=== PATIENT | male | born 1980 | race African-American/Black ===

== ENCOUNTER 2016-12-05 01:31 | Emergency (ER) | payer SELFPAY ==
--- NOTE | 2016-12-05 01:46 | ERRECORD ---
[facility] EMERGENCY RECORD ADMIN (01:40 [facility]) MERGE: Ambulance SatDec 05, 2016 00:56. KNOWN ALLERGIES No Known Allergies (Unconfirmed) No Known Drug Allergies (Unconfirmed) UNKNOWN (Unconfirmed) CURRENT MEDICATIONS No recorded medications VITAL SIGNS (01:33 MBOS) VITAL SIGNS: BP: 164/94, Pulse: 69, Resp: 16, Temp: 98.6 (Oral), Pain: 0, O2 sat: 97 on Room Air, Time: 12/05/2016 01:33. PROBLEM LIST No recorded problems DIAGNOSIS (01:42 MBOS) FINAL: PRIMARY: none. PRESCRIPTION No recorded prescriptions DISPOSITION (01:42 MBOS) PATIENT: Disposition Type: Eloped, Disposition: Left Without Being Seen, Patient left the department. Collier: TARAS=HARIKA Jarquin, Gaye MBOS=HARIKA Mendez, Elizabeth &a-1R&a+25V*p+0X*[id number]*c202B*c15G*c2P*p-0X&a-25V&a+1R Name: Valentín Duffy : 1980 M36 MedRec: [id number] AcctNum: [id number] Prepared: SatDec 05, 2016 01:44 by Interface Page 1 of 1 pMD MTDD
--- NOTE | 2016-12-05 01:51 | PICIS ---
[facility] EMERGENCY RECORD ADMIN (01:40 [facility]) MERGE: Ambulance SatDec 05, 2016 00:56. TRIAGE (SatDec 05, 2016 01:36 MBOS) PATIENT: NAME: MinorValentín, AGE: 36, GENDER: male, : Sat 1980, TIME OF GREET: SatDec 05, 2016 01:32, PREFERRED LANGUAGE: [place]uran, RACE: Black or , ETHNICITY: Not or , ECODE BILLING MAP: [facility], SSN: [id number], Zip Code: [address], KG WEIGHT: [phone], PHONE: , , , PERSON ID: [id number], PCP: unknown. (SatDec 05, 2016 01:36 MBOS) TRIAGE NOTES: Brought by EMS, no complaint, refuses to be seen. Alert and oriented, smiling, ambulatory. (SatDec 05, 2016 01:36 MBOS) COMPLAINT: BROUGHT IN BY EMS. (SatDec 05, 2016 01:36 MBOS) ADMISSION: URGENCY: Left Before Triage, ADMISSION SOURCE: Prison/Longterm, TRANSPORT: AMBULANCE - [facility], BED: TRIAGE. (SatDec 05, 2016 01:36 MBOS) PROVIDERS: TRIAGE NURSE: Elizabeth Mendez RN. (SatDec 05, 2016 01:36 MBOS) VITAL SIGNS: BP 164/94, Pulse 69, Resp 16, Temp 98.6, (Oral), Pain 0, O2 Sat 97, on Room Air, Time 12/05/2016 01:33. (01:33 MBOS) PREVIOUS VISIT ALLERGIES: No Known Allergies. (SatDec 05, 2016 01:36 MBOS) KNOWN ALLERGIES No Known Allergies (Unconfirmed) No Known Drug Allergies (Unconfirmed) UNKNOWN (Unconfirmed) CURRENT MEDICATIONS No recorded medications VITAL SIGNS (01:33 MBOS) VITAL SIGNS: BP: 164/94, Pulse: 69, Resp: 16, Temp: 98.6 (Oral), Pain: 0, O2 sat: 97 on Room Air, Time: 12/05/2016 01:33. NURSING PROCEDURE: NURSE NOTES (01:36 MBOS) NURSES NOTES: Notes: Patient was uncooperative and agitated at ambulance bay, cursing, [place] [employer] called. Patient walked into room 2, states he has no complaints and does not want to be seen. Awake, alert, oriented x3, ambulatory. Refused to be seen, AMA signed, PD present and states patient has to have ride home or will go to longterm. Sister called per patient request and picked up patient. IV DC'd, patient left with his sister. EVENTS TRANSFER: Triage to Emergency Triage. (SatDec 05, 2016 01:36 MBOS) &a-1R&a+25V*p+0X*s8401I*c202B*c15G*c2P*p-0X&a-25V&a+1R Name: Valentín Duffy : 1980 M36 MedRec: [id number] AcctNum: [id number] Prepared: SatDec 05, 2016 01:49 by Interface Page 1 of 2 pMD [facility] EMERGENCY RECORD Removed from Emergency Triage. (01:42 MBOS) PROBLEM LIST No recorded problems DIAGNOSIS (01:42 MBOS) FINAL: PRIMARY: none. DISPOSITION (01:42 MBOS) PATIENT: Disposition Type: Eloped, Disposition: Left Without Being Seen, Patient left the department. PRESCRIPTION No recorded prescriptions IMAGING (01:43 MBOS) *DISCHARGE INSTRUCTIONS RECEIPT: Image captured from scanner. *SUPPLY CHARGE SHEET: Image captured from scanner. Collier: [facility]=HARIKA Jarquin, Gaye MBOS=HARIKA Mendez Marie &a-1R&a+25V*p+0X*[id number]*c202B*c15G*c2P*p-0X&a-25V&a+1R Name: Valentín Duffy : 1980 M36 MedRec: [id number] AcctNum: [id number] Prepared: SatDec 05, 2016 01:49 by Interface Page 2 of 2 pMD MTDD
== END 2016-12-05 01:35 | disposition left against medical advice (07) ==
LOC: NAV ERS 01:31
DX: Z53.21 Procedure and treatment not carried out due to patient leaving prior to being seen by health care provider (principal)

== ENCOUNTER 2017-03-18 12:14 | Emergency (ER) | payer SELFPAY ==
[2017-03-18 12:50] LABS: PTT 28.1 SEC (22.9-36.1); Prothrombin Time 12.9 SEC (12.0-14.7)
[2017-03-18 12:52] LABS: #Basophils 0.1 thou/uL (0.0-0.2); #Eosinphils 0.1 thou/uL (0.0-0.7); #Lymphocytes 2.1 thou/uL (1.20-3.40); #Monocytes 0.5 thou/uL (0.11-0.59); #Neutrophils 2.6 thou/uL (1.40-6.50); %Basophils 2.7 % (0.0-1.0); %Eosinophils 1.6 % (0.0-10.0); %Lymphocytes 37.8 % (21.0-51.0); %Monocytes 9.5 % (0.0-10.0); %Neutrophils 48.4 % (42.0-75.0); Hemoglobin 14.1 g/dL (14.0-18.0); Mean Corpuscular HGB CONC 34.1 g/dL (32.0-36.0); Mean Corpuscular Hemoglobin 30.1 pg (27.0-31.0); Mean Corpuscular Volume 88.2 fl (80.0-94.0); Mean Platelet Volume 11.2 fL (7.4-10.4); Platelet Count 181 thou/uL (130-400); RBC Distribution Width 11.5 % (11.5-14.5); Red Blood Cell (RBC) Count 4.68 mill/uL (4.70-6.10); White Blood Cell (WBC) Count 5.5 thou/uL (4.8-10.8)
[2017-03-18 13:01] LABS: ALT (SGPT) 21 U/L (0-55); AST (SGOT) 27 U/L (5-34); Albumin 4.4 g/dL (3.5-5.0); Alkaline Phosphatase 62 U/L (40-150); Anion Gap 13 mmol/L (10-20); BUN (Urea Nitrogen) 15 mg/dL (8.9-20.6); Bilirubin, Total 0.3 mg/dL (0.2-1.2); Calc. Creatinine Clearance 0 mL/min (70-130); Calcium 8.9 mg/dL (7.8-10.44); Carbon Dioxide 25 mmol/L (22-29); Chloride 105 mmol/L (98-107); Estimated GFR-MDRD Greater than 90; Globulin 2.9 g/dL (2.4-3.5); Glucose 90 mg/dL (70-105); Potassium 3.7 mmol/L (3.5-5.1); Protein, Total 7.3 g/dL (6.0-8.3); Sodium 139 mmol/L (136-145)
[2017-03-18 13:02] LABS: Troponin I Less than 0.010 ng/mL (< 0.028)
[2017-03-18 13:04] LABS: CKMB 7.8 ng/mL (0-6.6)
[2017-03-18 13:21] LABS: Amphetamine Not Detected (NotDetected); Barbiturates Screen Not Detected (NotDetected); Benzodiazepine Screen Not Detected (NotDetected); Cocaine Metabolite Screen Not Detected (NotDetected); Medtox Control Line Valid? VALID (VALID); Methadone Not Detected (NotDetected); Methamphetamine Not Detected (NotDetected); Opiate Screen Not Detected (NotDetected); Oxycodone Screen Not Detected (NotDetected); Phencyclidine (PCP) Detected (NotDetected); THC/Cannabinoid Screen Detected (NotDetected); Tricyclic Screen Not Detected (NotDetected)
== END 2017-03-18 14:00 | disposition short-term general hospital (02) ==
LOC: NAV ERS 12:14
DX: R07.9 Chest pain, unspecified (principal); J45.909 Unspecified asthma, uncomplicated; I10 Essential (primary) hypertension; F17.210 Nicotine dependence, cigarettes, uncomplicated
CPT/HCPCS: 80053; 80306; 82553; 84484; 85025; 85610; 85730; 93005

== ENCOUNTER 2017-11-16 00:10 | Emergency (ER) | payer OTHER, SELFPAY ==
[2017-11-16 01:01] LABS: Amphetamine Not Detected (NotDetected); Barbiturates Screen Not Detected (NotDetected); Benzodiazepine Screen Not Detected (NotDetected); Cocaine Metabolite Screen Not Detected (NotDetected); Medtox Control Line Valid? VALID (VALID); Methadone Not Detected (NotDetected); Methamphetamine Not Detected (NotDetected); Opiate Screen Not Detected (NotDetected); Oxycodone Screen Not Detected (NotDetected); Phencyclidine (PCP) Detected (NotDetected); THC/Cannabinoid Screen Detected (NotDetected); Tricyclic Screen Not Detected (NotDetected)
[2017-11-16 01:05] LABS: #Basophils 0.2 thou/uL (0.0-0.2); #Eosinphils 0.4 thou/uL (0.0-0.7); #Lymphocytes 2.7 thou/uL (1.20-3.40); #Monocytes 0.6 thou/uL (0.11-0.59); #Neutrophils 3.7 thou/uL (1.40-6.50); %Basophils 2.2 % (0.0-1.0); %Eosinophils 5.2 % (0.0-10.0); %Lymphocytes 35.4 % (21.0-51.0); %Monocytes 7.6 % (0.0-10.0); %Neutrophils 49.7 % (42.0-75.0); Hemoglobin 15.5 g/dL (14.0-18.0); Large Platelets SLIGHT; MDiff Complete? YES; Mean Corpuscular HGB CONC 34.4 g/dL (32.0-36.0); Mean Corpuscular Hemoglobin 30.4 pg (27.0-31.0); Mean Corpuscular Volume 88.3 fl (80.0-94.0); Mean Platelet Volume 12.9 fL (7.4-10.4); PLT Morphology Comment Appears Adequate; Platelet Count 191 thou/uL (130-400); RBC Distribution Width 11.4 % (11.5-14.5); RBC Morphology Normal; Red Blood Cell (RBC) Count 5.11 mill/uL (4.70-6.10); White Blood Cell (WBC) Count 7.5 thou/uL (4.8-10.8)
[2017-11-16 01:11] LABS: ALT (SGPT) 58 U/L (8-55); AST (SGOT) 123 U/L (5-34); Albumin 4.5 g/dL (3.5-5.0); Alcohol 96 mg/dL (Less than 10); Alkaline Phosphatase 90 U/L (40-150); Anion Gap 20 mmol/L (10-20); BUN (Urea Nitrogen) 18 mg/dL (8.9-20.6); Bilirubin, Total 0.2 mg/dL (0.2-1.2); CK (CPK) 3769 U/L (30-200); Calc. Creatinine Clearance 0 mL/min (70-130); Calcium 9.1 mg/dL (7.8-10.44); Carbon Dioxide 17 mmol/L (22-29); Chloride 108 mmol/L (98-107); Estimated GFR-MDRD 85; Globulin 3.7 g/dL (2.4-3.5); Glucose 127 mg/dL (70-105); Protein, Total 8.2 g/dL (6.0-8.3); Sodium 141 mmol/L (136-145)
[2017-11-16] MEDS ORDERED: Sodium Chloride 0.9% 1,000 ML ONE ×2 (01:54→02:44)
== END 2017-11-16 02:25 | disposition short-term general hospital (02) ==
LOC: NAV ERS 00:10
DX: F10.129 Alcohol abuse with intoxication, unspecified (principal); F16.129 Hallucinogen abuse with intoxication, unspecified; M62.82 Rhabdomyolysis; F17.210 Nicotine dependence, cigarettes, uncomplicated; I10 Essential (primary) hypertension; J45.909 Unspecified asthma, uncomplicated
CPT/HCPCS: 80053; 80306; 80307; 82550; 85025; 96360; J7050

== ENCOUNTER 2017-11-30 19:55 | Emergency (ER) | payer SELFPAY ==
[2017-11-30] MEDS ORDERED: Ketorolac Tromethamine 60 MG/2 ML VIAL ONE (20:38)
--- NOTE | 2017-11-30 20:46 | RAD ---
TWO VIEWS OF LEFT HEEL 11/30/17 INDICATION: Jumped three feet off ground with injury. FINDINGS: There is soft tissue swelling in the region of the Achilles tendon and Kager's fat pad. There are en thesopathic change off the calcaneus. There is degenerative changes within the mid foot. No acute fra cture is evident. IMPRESSION: Soft tissue swelling of the posterior distal foreleg. POS: [facility]
--- NOTE | 2017-11-30 20:50 | RAD ---
FIVE VIEWS OF THE LEFT FORELEG 11/30/17 INDICATION: Injury to left foreleg. Patient jumped three feet off the ground with left leg injury. COMPARISON: None. IMPRESSION: 1. No acute fracture or subluxation is evident. 2. Nonspecific joint capsular distention of the left knee may reflect changes of internal derang ement. There is mild osteoarthrosis of the left knee 3. Soft tissue swelling of the posterior distal left foreleg may reflect sequela of Achilles inj ury. COMMENTS: No comparisons are available. No radiopaque foreign body is evident. POS: [facility]
== END 2017-11-30 20:59 | disposition home or self-care (01) ==
LOC: NAV ERS 19:55
DX: S93.402A Sprain of unspecified ligament of left ankle, initial encounter (principal); I10 Essential (primary) hypertension; J45.909 Unspecified asthma, uncomplicated; F17.210 Nicotine dependence, cigarettes, uncomplicated; W01.0XXA Fall on same level from slipping, tripping and stumbling without subsequent striking against object, initial encounter
CPT/HCPCS: 96372; J1885

== ENCOUNTER 2018-04-16 18:14 | Emergency (ER) | payer SELFPAY ==
[2018-04-16] MEDS ORDERED: Ketorolac Tromethamine 30 MG/ML VIAL ONE (20:55)
[2018-04-16] MEDS ORDERED: Morphine 4 MG/ML Carpuject ONE (20:55)
[2018-04-16] MEDS ORDERED: Cyclobenzaprine 10 MG TAB ONE (20:55)
== END 2018-04-16 21:03 | disposition home or self-care (01) ==
LOC: NAV ERS 18:14
DX: M54.42 Lumbago with sciatica, left side (principal); I10 Essential (primary) hypertension; J45.909 Unspecified asthma, uncomplicated; F17.210 Nicotine dependence, cigarettes, uncomplicated
CPT/HCPCS: 96372; J1885; J2270

== ENCOUNTER 2018-08-19 23:09 | Emergency (ER) | payer BC, SELFPAY ==
--- NOTE | 2018-08-19 23:48 | RAD ---
FOUR VIEWS LEFT ELBOW: 08/19/18 HISTORY: Left elbow pain. AP, lateral, and both oblique views left elbow obtained. Images demonstrate plate and screws in the proximal left ulna from previous injury. No evidence of acute fractures or bony lesions seen. Some moderate left elbow osteoarthritic changes seen involving the olecranon and the distal left humerus as well as the radial head and capitellum. IMPRESSION: Left elbow osteoarthritic changes. No acute abnormality seen. POS: [facility]
[2018-08-20] MEDS ORDERED: Naproxen 500 MG TAB ONE (00:05)
== END 2018-08-20 00:10 | disposition home or self-care (01) ==
LOC: NAV ERS 23:09
DX: M70.22 Olecranon bursitis, left elbow (principal); I10 Essential (primary) hypertension; J45.909 Unspecified asthma, uncomplicated; F17.210 Nicotine dependence, cigarettes, uncomplicated; X50.0XXA Overexertion from strenuous movement or load, initial encounter

== ENCOUNTER 2018-08-27 16:35 | Emergency (ER) | payer BC ==
[2018-08-27 18:01] LABS: #Basophils 0.1 thou/uL (0.0-0.2); #Eosinphils 0.2 thou/uL (0.0-0.7); #Lymphocytes 1.8 thou/uL (1.20-3.40); #Monocytes 0.6 thou/uL (0.11-0.59); #Neutrophils 3.3 thou/uL (1.40-6.50); %Basophils 2.2 % (0.0-1.0); %Eosinophils 2.9 % (0.0-10.0); %Lymphocytes 30.3 % (21.0-51.0); %Monocytes 10.6 % (0.0-10.0); %Neutrophils 53.9 % (42.0-75.0); Hemoglobin 14.9 g/dL (14.0-18.0); Mean Corpuscular HGB CONC 32.7 g/dL (32.0-36.0); Mean Corpuscular Hemoglobin 29.3 pg (27.0-31.0); Mean Corpuscular Volume 89.5 fL (78.0-98.0); Mean Platelet Volume 12.5 fL (7.4-10.4); Platelet Count 193 thou/uL (130-400); RBC Distribution Width 11.3 % (11.5-14.5); Red Blood Cell (RBC) Count 5.09 mill/uL (4.70-6.10)
[2018-08-27 18:10] LABS: ALT (SGPT) 32 U/L (8-55); AST (SGOT) 52 U/L (5-34); Albumin 4.5 g/dL (3.5-5.0); Alkaline Phosphatase 81 U/L (40-150); Anion Gap 15 mmol/L (10-20); BUN (Urea Nitrogen) 14 mg/dL (8.9-20.6); Bilirubin, Total 0.6 mg/dL (0.2-1.2); Calc. Creatinine Clearance 0 mL/min (70-130); Calcium 9.8 mg/dL (7.8-10.44); Carbon Dioxide 26 mmol/L (22-29); Chloride 105 mmol/L (98-107); Estimated GFR-MDRD 89; Globulin 3.3 g/dL (2.4-3.5); Glucose 86 mg/dL (70-105); Magnesium 2.1 mg/dL (1.6-2.6); Potassium 3.5 mmol/L (3.5-5.1); Protein, Total 7.8 g/dL (6.0-8.3); Sodium 142 mmol/L (136-145)
--- NOTE | 2018-08-27 18:15 | RAD ---
PA AND LATERAL CHEST X-RAY 08/27/18 HISTORY: Dizziness and headache. COMPARISON: 11/16/17. FINDINGS: The cardiac silhouette and pulmonary vasculature are within normal limits. The lungs are clear. There has been no interval change from prior exam. IMPRESSION: No acute cardiopulmonary process. POS: [facility]
[2018-08-27] MEDS ORDERED: Amoxicillin/Potassium Clav 875 MG TAB ONE (19:36)
--- NOTE | 2018-08-27 19:48 | CT ---
NONCONTRAST CT HEAD: 08/27/18 HISTORY: Headache and malaise. COMPARISON: 08/02 04/16. FINDINGS: There is no evidence of a hemorrhage, acute infarction, mass effect, or midline shift. Ventricular sy stem is normal in size, shape and position. There is minimal mucosal thickening in the bilateral ethm oidal air cells. Mastoid air cells are clear. Calvarial structures are intact. IMPRESSION: No acute intracranial abnormalities demonstrated. POS: [facility]
== END 2018-08-27 19:52 | disposition home or self-care (01) ==
LOC: NAV ERS 16:35
DX: R51 Headache (principal); K08.89 Other specified disorders of teeth and supporting structures; R53.81 Other malaise; R05 Cough; J45.909 Unspecified asthma, uncomplicated; F17.210 Nicotine dependence, cigarettes, uncomplicated; Z79.899 Other long term (current) drug therapy
CPT/HCPCS: 70450; 71046; 80053; 83735; 85025; 93005; 96360

== ENCOUNTER 2018-10-04 20:57 | Emergency (ER) | payer BC | END 2018-10-04 21:09 | disposition home or self-care (01) | LOC: NAV ERS 20:57 | DX: F19.10 Other psychoactive substance abuse, uncomplicated (principal); I10 Essential (primary) hypertension; J45.909 Unspecified asthma, uncomplicated; F17.210 Nicotine dependence, cigarettes, uncomplicated | CPT/HCPCS: 99283 ==

== ENCOUNTER 2020-10-21 22:08 | Emergency (ER) | payer BC, SELFPAY | END 2020-10-21 22:30 | LOC: NAV LAB 22:08 → NAV ERS 22:08 → EDSTATUS 22:22 → NAV ERS 22:30 → EDSTATUS 22:46 | DX: F10.129 Alcohol abuse with intoxication, unspecified (principal); I10 Essential (primary) hypertension; J45.909 Unspecified asthma, uncomplicated; F17.210 Nicotine dependence, cigarettes, uncomplicated | CPT/HCPCS: 99283 ==

== ENCOUNTER 2022-07-15 06:15 | Emergency (ER) | payer SELFPAY ==
[2022-07-15] MEDS ORDERED: Sodium Chloride 0.9% 1,000 ML ONE (06:54)
[2022-07-15] MEDS ORDERED: Ondansetron PF 4 MG/2 ML Vial ONE (06:54)
[2022-07-15 06:58] LABS: Bilirubin Small (Negative); Blood, Urine Negative (Negative); Clarity Clear (Clear); Glucose, Urine (Dipstick) 250 mg/dL (Negative); Ketone, Urine 15 mg/dL (Negative); Leukocyte Negative (Negative); Nitrite Negative (Negative); Protein, Urine (Dipstick) 30 mg/dL (Neg-Trace); Specific Gravity, Urine 1.025 (1.005-1.030)
[2022-07-15 07:02] LABS: Bacteria/HPF None Seen HPF (None Seen); RBC/HPF None Seen HPF (0-3); Squamous Epithelial None Seen HPF (0-3); WBC/HPF None Seen HPF (0-3)
[2022-07-15 07:04] LABS: #Basophils 0.1 thou/uL (0.0-0.2); #Eosinphils 0.1 thou/uL (0.0-0.7); #Lymphocytes 1.7 thou/uL (1.20-3.40); #Monocytes 0.7 thou/uL (0.11-0.59); %Basophils 2.3 % (0.0-1.0); %Eosinophils 2.1 % (0.0-10.0); %Lymphocytes 29.6 % (21.0-51.0); %Monocytes 12.1 % (0.0-10.0); %Neutrophils 53.8 % (42.0-75.0); Hemoglobin 15.6 g/dL (14.0-18.0); Mean Corpuscular HGB CONC 32.6 g/dL (32.0-36.0); Mean Corpuscular Hemoglobin 30.1 pg (27.0-31.0); Mean Corpuscular Volume 92.3 fL (78.0-98.0); Mean Platelet Volume 13.2 fL (7.4-10.4); Platelet Count 171 thou/uL (130-400); RBC Distribution Width 11.7 % (11.5-14.5); Red Blood Cell (RBC) Count 5.17 mill/uL (4.70-6.10); White Blood Cell (WBC) Count 5.6 thou/uL (4.8-10.8)
[2022-07-15 07:08] LABS: Amphetamine Not Detected (NotDetected); Barbiturates Screen Not Detected (NotDetected); Benzodiazepine Screen Not Detected (NotDetected); Cocaine Metabolite Screen Not Detected (NotDetected); Medtox Control Line Valid? VALID (VALID); Methadone Not Detected (NotDetected); Methamphetamine Not Detected (NotDetected); Opiate Screen Not Detected (NotDetected); Oxycodone Screen Not Detected (NotDetected); Phencyclidine (PCP) Detected (NotDetected); THC/Cannabinoid Screen Detected (NotDetected); Tricyclic Screen Not Detected (NotDetected)
[2022-07-15 07:17] LABS: ALT (SGPT) 49 U/L (8-55); AST (SGOT) 51 U/L (5-34); Albumin 4.3 g/dL (3.5-5.0); Alkaline Phosphatase 104 U/L (40-110); Anion Gap 16 mmol/L (10-20); BUN (Urea Nitrogen) 12 mg/dL (8.9-20.6); Bilirubin, Total 0.4 mg/dL (0.2-1.2); CK (CPK) 884 U/L (30-200); Calc. Creatinine Clearance 0 mL/min (70-130); Carbon Dioxide 22 mmol/L (22-29); Chloride 107 mmol/L (98-107); Estimated GFR 95; Globulin 3.5 g/dL (2.4-3.5); Glucose 171 mg/dL (70-105); Lipase 22 U/L (8-78); Potassium 3.5 mmol/L (3.5-5.1); Protein, Total 7.8 g/dL (6.0-8.3); Sodium 141 mmol/L (136-145)
[2022-07-15] MEDS ORDERED: Ketorolac Tromethamine 30 MG/ML VIAL ONE (07:40)
[2022-07-15] MEDS ORDERED: Lidocaine 1% (PF) 30 ML VIAL ONE (09:43)
== END 2022-07-15 07:55 | disposition home or self-care (01) ==
LOC: NAV ERS 06:15
DX: B34.9 Viral infection, unspecified (principal); E86.0 Dehydration; Z20.822 Contact with and (suspected) exposure to COVID-19; I10 Essential (primary) hypertension; F17.210 Nicotine dependence, cigarettes, uncomplicated
CPT/HCPCS: 71045; 80053; 80306; 81003; 81015; 82550; 83605; 83690; 84484; 85025; 93005; 96361; 96374; 96375; J1885; J2001; J2405; J7050; U0003; U0005